=== PATIENT | male | born 1955 | race Caucasian/White ===

== ENCOUNTER 2019-07-03 10:41 | Outpatient (RCR) | payer BC, SELFPAY | END 2019-07-14 23:59 | disposition home or self-care (01) | LOC: SPT 10:41 | PROVIDERS: Family Provider Family Medicine; PCP Family Medicine; Referring Provider Nurse Practitioner Family; Visit Provider Nurse Practitioner Family | DX: R42 Dizziness and giddiness (principal) | CPT/HCPCS: 95992; 97162 ==

== ENCOUNTER 2019-07-15 06:00 | Outpatient (RCR) | payer BC, SELFPAY | END 2019-08-14 23:59 | disposition home or self-care (01) | LOC: SPT 06:00 | PROVIDERS: Family Provider Family Medicine; PCP Family Medicine; Referring Provider Nurse Practitioner Family; Visit Provider Nurse Practitioner Family | DX: H81.12 Benign paroxysmal vertigo, left ear (principal); R42 Dizziness and giddiness | CPT/HCPCS: 95992 ==

== ENCOUNTER 2021-07-14 13:36 | Outpatient (CLI) | payer MEDICARE, BC, SELFPAY | END 2021-07-14 13:37 | disposition home or self-care (01) | LOC: WOUND 13:37 | PROVIDERS: Family Provider Family Medicine; PCP Nurse Practitioner Family; Visit Provider Thoracic Surgery (Cardiothoracic Vascular Surgery) | DX: I96 Gangrene, not elsewhere classified (principal); T87.81 Dehiscence of amputation stump; Y83.8 Other surgical procedures as the cause of abnormal reaction of the patient, or of later complication, without mention of misadventure at the time of the procedure | CPT/HCPCS: 11042; 11045; 99213 ==

== ENCOUNTER → 2021-07-23 11:22 | Outpatient (BNVA) | payer MEDICARE, BC, SELFPAY | PROVIDERS: Family Provider Family Medicine; PCP Nurse Practitioner Family; Visit Provider Thoracic Surgery (Cardiothoracic Vascular Surgery) | DX: R25.1 Tremor, unspecified (principal) | CPT/HCPCS: 36416; 82962 ==

== ENCOUNTER → 2022-08-20 16:30 | Outpatient (BNVA) | payer MEDICARE, BC, SELFPAY | PROVIDERS: Family Provider Family Medicine; PCP Nurse Practitioner Family; Visit Provider Nurse Practitioner Family | DX: F41.9 Anxiety disorder, unspecified (principal); I25.10 Atherosclerotic heart disease of native coronary artery without angina pectoris; I10 Essential (primary) hypertension | CPT/HCPCS: 80053; 80061; 84443 ==

== ENCOUNTER → 2023-11-21 10:00 | Outpatient (BNVA) | payer BC, SELFPAY | PROVIDERS: Family Provider Family Medicine; PCP Nurse Practitioner Family; Visit Provider Nurse Practitioner Family | DX: R53.83 Other fatigue (principal) | CPT/HCPCS: 82306; 82607; 83516; 84402; 84403; 84439; 84443 ==

== ENCOUNTER 2024-02-02 11:17 | Outpatient (CLI) | payer BC, SELFPAY ==
--- NOTE | 2024-02-02 11:21 | MR_ITS ---
WS: [id number] MRI LUMBAR SPINE NONCONTRAST TECHNIQUE: Sagittal T1, T2 and STIR imaging. Axial T1 and T2 imaging. CLINICAL INFORMATION: VERTEBROGENIC LOW BACK PAIN COMPARISON: None. FINDINGS: Mild lumbar curve. No acute compression. Disc space narrowing worse at L2-L3 L3-L4 and L4-L5. Chronic anterior wedging at L3. L1-L2: Slight retrolisthesis. Mild annular bulging. Moderate facet arthropathy. Spinal canal and fora men are patent. L2-L3: Mild disc osteophyte complex with endplate ridging. Moderate central canal stenosis with impin gement on the subarticular recess. Moderate facet arthropathy. Foramen are patent. L3-L4: Mild disc bulge with moderate central canal stenosis. Small central protrusion. Moderate facet arthropathy and ligamentum flavum hypertrophy. Mild LEFT foraminal narrowing. L4-L5: Disc bulge with osteophytic ridging. Moderate facet arthropathy. Moderate central canal stenos is with impingement of the subarticular recess bilaterally. Foramen are patent. L5-S1: Slight anterolisthesis L5 on S1. Mild disc bulging with slight effacement of the ventral theca l sac. Moderate facet arthropathy. Mild RIGHT foraminal narrowing. LEFT foramen is patent. Visualized pelvic bony structures: Normal. Paravertebral soft tissues: Normal. MR/MR lumbar spine wo con* [id number] IMPRESSION: 1. Mild chronic anterior wedging at L3. No acute compression fractures. 2. Moderate central canal stenosis L2-L3, L3-L4, and L4-L5 with impingement of the subarticular recess bilaterally at these levels. Recommend spine surgery c onsultation. 3. Moderate facet arthropathy L2-L3 L3-L4 L4-L5 and L5-S1. 4. RIGHT eccentric disc osteophyte complex slightly contacts the exiting RIGHT L5 nerve root.
== END 2024-02-02 11:18 | disposition home or self-care (01) ==
LOC: RAD 11:19
PROVIDERS: Family Provider Family Medicine; PCP Nurse Practitioner Family; Visit Provider Anesthesiology Pain Medicine
DX: M48.04 Spinal stenosis, thoracic region (principal); M54.16 Radiculopathy, lumbar region; M47.896 Other spondylosis, lumbar region; M47.898 Other spondylosis, sacral and sacrococcygeal region
CPT/HCPCS: 72148

== ENCOUNTER → 2024-05-04 09:50 | Outpatient (BNVA) | payer BC, SELFPAY | PROVIDERS: Family Provider Family Medicine; PCP Nurse Practitioner Family; Visit Provider Nurse Practitioner Family | DX: I10 Essential (primary) hypertension (principal) | CPT/HCPCS: 80053; 80061 ==

== ENCOUNTER → 2025-02-11 11:00 | Outpatient (BNVA) | payer BC, SELFPAY | PROVIDERS: Family Provider Nurse Practitioner Family; PCP Nurse Practitioner Family; Visit Provider Nurse Practitioner Family | DX: Z12.5 Encounter for screening for malignant neoplasm of prostate (principal); I10 Essential (primary) hypertension | CPT/HCPCS: 80053; 80061; G0103 ==

== ENCOUNTER → 2025-04-25 09:30 | Outpatient (BNVA) | payer BC, SELFPAY | PROVIDERS: Family Provider Nurse Practitioner Family; PCP Nurse Practitioner Family; Visit Provider Nurse Practitioner Family | DX: L02.91 Cutaneous abscess, unspecified (principal) | CPT/HCPCS: 87070 ==